=== PATIENT | female | born 2000 | race Two or more races ===

== ENCOUNTER 2022-07-06 21:30 | Emergency (ER) | payer OTHER ==
[~2022-07-06] VITALS: Ht 162.6 cm; Wt 68.0 kg
== END 2022-07-06 22:31 | disposition home or self-care (01) ==
LOC: ER 21:30
DX: L01.00 Impetigo, unspecified (principal)

== ENCOUNTER 2022-08-10 23:41 | Emergency (ER) | payer OTHER ==
[~2022-08-10] VITALS: Ht 162.6 cm; Wt 72.6 kg
[2022-08-10] MEDS ORDERED: PRENATAL + DHA1 EAC1 PO (23:55)
[2022-08-11] MEDS ORDERED: ACETAMINOPHEN650 M2 PO (05:37)
== END 2022-08-11 05:51 | disposition home or self-care (01) ==
LOC: ER 23:41
DX: O26.891 Other specified pregnancy related conditions, first trimester (principal); Z3A.13 13 weeks gestation of pregnancy; R10.2 Pelvic and perineal pain; S29.8XXA Other specified injuries of thorax, initial encounter; V43.62XA Car passenger injured in collision with other type car in traffic accident, initial encounter; Y92.413 State road as the place of occurrence of the external cause

== ENCOUNTER 2023-01-23 09:34 | Inpatient (IN) | payer OTHER ==
[~2023-01-23] VITALS: Ht 162.6 cm; Wt 3.2 kg
[~2023-01-23 09:34] MED LIST: ACETAMINOPHEN650 M2 PO; PRENATAL + DHA1 EAC1 PO
[2023-02-12] MEDS ORDERED: PRENATAL TABLE1 EAC1 PO (05:56)
[2023-02-12 06:16] LABS: HEMATOCRIT 39.1 % (36.0-45.00); HEMOGLOBIN 13.5 g/dL (12.0-15.00); MEAN CELL VOLUME 89.7 fL (80.00-100.00); MEAN CORPUSCULAR HEMOGLOBIN 30.9 pg (27.00-32.0); MEAN CORPUSCULAR HGB CONC 34.5 g/dl (32.0-36.0); PLATELET COUNT 225 K/uL (150-450); RED BLOOD COUNT 4.36 M/uL (4.00-6.00); RED CELL DISTRIBUTION WIDTH 14.1 % (11.5-14.5)
[2023-02-12 06:40] LABS: PH,URINE 6.5 (5.0-8.0); URINE APPEARANCE Clear; URINE BILIRRUBIN Negative (NEGATIVE); URINE BLOOD Negative; URINE COLOR Yellow; URINE GLUCOSE Negative (NEGATIVE); URINE LEUKOCYTE Small; URINE NITRATE Negative; URINE PROTEIN Negative (NEGATIVE); URINE UROBILINOGEN 0.2 E.U./dl
[2023-02-12 06:43] LABS: URINE BACTERIA 2148.2 uL (0.0-1933); URINE RBC 2.5 uL (0.0-20.8); URINE WBC 52.4 uL (0.0-23.2)
[2023-02-12 06:49] LABS: INR < 0.93; PARTIAL THROMBOPLASTIN TIME 20.5 SECONDS (22.0-34.0); PROTHROMBIN TIME 9.4 SECONDS (9.0-11.5)
[2023-02-12 06:51] LABS: ALBUMIN 2.7 gm/dL (3.4-5.0); BILIRUBIN TOTAL 0.21 mg/dL (0.3-1.2); CALCIUM 8.7 mg/dL (8.5-10.1); CREATININE SERUM 0.45 mg/dL (0.55-1.02); GFR 172.66; GLOBULINA 3.5 G/DL (2.4-3.5); POTASSIUM 3.93 mEq/L (3.5-5.1); TOTAL PROTEIN 6.2 gm/dL (6.4-8.2)
[2023-02-12 07:27] LABS: URINE EPITHELIAL CELLS > 201.7 uL (0.0-38.8)
[2023-02-13 00:56] LABS: HEMATOCRIT 37.1 % (36.0-45.00); HEMOGLOBIN 12.3 g/dL (12.0-15.00); MEAN CELL VOLUME 89.5 fL (80.00-100.00); MEAN CORPUSCULAR HEMOGLOBIN 29.7 pg (27.00-32.0); MEAN CORPUSCULAR HGB CONC 33.2 g/dl (32.0-36.0); PLATELET COUNT 206 K/uL (150-450); RED BLOOD COUNT 4.15 M/uL (4.00-6.00); RED CELL DISTRIBUTION WIDTH 14.6 % (11.5-14.5)
[2023-02-15] MEDS ORDERED: IBUPROFEN800 MG PO (07:01)
== END 2023-02-15 17:18 | disposition home or self-care (01) | DRG 788 ==
LOC: OB/GYN 02-11 09:33 → LDR 02-12 05:07 → OB/GYN 02-12 05:07 → O/R 02-12 17:29 → OB/GYN 02-12 20:21
PROVIDERS: ADMIT Specialist; ATTEND Specialist
PROC: 4A1HXCZ Monitoring of Products of Conception, Cardiac Rate, External Approach (ICD-10-PCS; 2023-02-12)
PROC: 10D00Z1 Extraction of Products of Conception, Low, Open Approach (ICD-10-PCS; principal; 2023-02-12 17:30)
DX: O33.8 Maternal care for disproportion of other origin (principal); O48.0 Post-term pregnancy; Z3A.40 40 weeks gestation of pregnancy; Z37.0 Single live birth; Z20.822 Contact with and (suspected) exposure to COVID-19